=== PATIENT | male | born 1995 | race African-American/Black ===

== ENCOUNTER 2017-07-12 20:27 | Emergency (ER) | payer SELFPAY ==
[~2017-07-12] VITALS: Ht 177.8 cm; Wt 88.6 kg
[~2017-07-12 20:27] MED LIST: CEPH500C3 PO; Z.0.NO CURRENT MEDS
[2017-07-12 20:29] VITALS: BP 105/57; PULSE 64; RESP 15; TEMP 99; O2SAT 96
--- NOTE | 2017-07-12 21:36 | PD ---
HPI Chief Complaint: Bite or Sting Time Seen by Provider: 21:31 Travel History International Travel<30 days: No Contact w/Intl Traveler<30days: No Traveled to known affect area: No History of Present Illness HPI ABOUT 4HRS AGO WAS BITTEN BY A STRAY DOG, UNKNOWN VACCINATION STATUS OF DOG, ALSO CAN'T RECALL LAST TETANUS UPDATE ON HIMSELF WELL. DENIES ANY OTHER COMPLAINT PFSH Past Medical History Diminished Hearing: No Immunizations Current: Yes Social History Alcohol Use: No Tobacco Use: No Substance Use: No Allergies-Medications (Allergen,Severity, Reaction): Coded Allergies: shellfish derived (Unverified Allergy, Severe, Hives, 06/14/17) Reported Meds & Prescriptions Reported Meds & Active Scripts Active Lortab (Hydrocodone-Acetaminophen) 5-325 Mg Tab 1 Tab PO Q4H PRN Augmentin (Amoxicillin-Clavulanate) 875-125 Mg Tab 1 Tab PO BID Review of Systems Except as stated in HPI: all other systems reviewed are Neg Skin: Positive Other (RIGHT LAC TO CALF AREA) Physical Exam Narrative GENERAL: SKIN: Warm and dry. HEAD: Atraumatic. Normocephalic. EYES: Pupils equal and round. No scleral icterus. No injection or drainage. ENT: No nasal bleeding or discharge. Mucous membranes pink and moist. NECK: Trachea midline. No JVD. CARDIOVASCULAR: Regular rate and rhythm. RESPIRATORY: No accessory muscle use. Clear to auscultation. Breath sounds equal bilaterally. GASTROINTESTINAL: Abdomen soft, non-tender, nondistended. MUSCULOSKELETAL: Extremities without clubbing, cyanosis, or edema. No obvious deformities. 5 CM LAC TO MEDIAL LATERAL CALF NEUROLOGICAL: Awake and alert. No obvious cranial nerve deficits. Motor grossly within normal limits. Five out of 5 muscle strength in the arms and legs. Normal speech. PSYCHIATRIC: Appropriate mood and affect; insight and judgment normal. Data Data Last Documented VS Vital Signs Date Time Temp Pulse Resp B/P (MAP) Pulse Ox O2 Delivery O2 Flow Rate FiO2 07/13/17 00:07 07/12/17 20:29 99.0 64 15 96 Room Air Orders Orders Rabies Vaccine Human Cell Inj (Imovax In (07/12/17 21:45) Rabies Immune Globulin Inj (Hyperrab S/D (07/12/17 21:45) Xaro-Ywn-Cmrxoq (Booster) Inj (Boostrix (07/12/17 22:00) Acetamin-Hydrocod 325-10 Mg ([place] 10-32 (07/12/17 22:45) Forearm (2vws) (07/12/17 ) MDM Medical Decision Making Medical Screen Exam Complete: Yes Emergency Medical Condition: Yes Medical Record Reviewed: Yes Differential Diagnosis DOG BITE FROM UNKNOWN DOG Narrative Course DUE TO UNKNOWN DOG, WILL GIVE RABIES IG 20IU/KG MOST OF IT TO WOUND SITE, IF ANY LEFT OVER WILL BE GIVEN IPSILATERAL DELTOID..... OPPOSITE DELTOID RABIES IM TOXOID.... WELL TETANUS TOXOID...PLEASE SEE LOOSE REAPPROX DONE BY ADENIKE POWELL PROCEDURE NOTE Diagnosis Primary Impression: LACERATION S/P DOG BITE Patient Instructions: Animal Bite (ED), General Instructions, Laceration (ED) Additional Instructions: RETURN TO CLINIC OR URGENT CARE TO REMOVE SUTURES IN 7 DAYS Scripts Hydrocodone-Acetaminophen (Lortab) 5-325 Mg Tab 1 TAB PO Q4H Y for PAIN, #20 TAB 0 Refills Prov: Robson Aly MD 07/12/17 Amoxicillin-Clavulanate (Augmentin) 875-125 Mg Tab 1 TAB PO BID for Infection, #14 TAB 0 Refills Prov: Robson Aly MD 07/12/17 Disposition: 01 DISCHARGE HOME Condition: Stable Robson Aly MD Jul 12, 2017 21:36
[2017-07-12] MEDS ORDERED: RABIES IMMUNE GLOBULIN INJ 1,500 UNITS/10 ML VIAL IM ONE (21:45)
[2017-07-12] MEDS ORDERED: RABIES VACCINE HUMAN DIPL CELL 2.5 UNITS/ML SYRINGE IM ONE (21:45)
[2017-07-12] MEDS ORDERED: HYDR-3533 PO (21:51)
[2017-07-12] MEDS ORDERED: AUGM875T3 PO (21:51)
[2017-07-12] MEDS ORDERED: DIPHTH/TETANUS/ACEL PERTUSSIS (BOOSTER) 0.5 ML VIAL/PFS IM ONE (22:00)
[2017-07-12] MEDS ORDERED: ACETAMINOPHEN/HYDROcodone 325 MG/10 MG TAB PO ONE (22:45)
--- NOTE | 2017-07-12 23:20 | PD ---
Physical Exam Date Seen by Provider: Jul 12, 2017 Time Seen by Provider: 22:30 Data Data Last Documented VS Vital Signs Date Time Temp Pulse Resp B/P (MAP) Pulse Ox O2 Delivery O2 Flow Rate FiO2 07/12/17 20:29 99.0 64 15 105/57 (73) 96 Room Air Orders Orders Rabies Vaccine Human Cell Inj (Imovax In (07/12/17 21:45) Rabies Immune Globulin Inj (Hyperrab S/D (07/12/17 21:45) Bmnr-Ino-Ehxnrz (Booster) Inj (Boostrix (07/12/17 22:00) Acetamin-Hydrocod 325-10 Mg ([place] 10-32 (07/12/17 22:45) MDM Medical Record Reviewed: Yes Supervised Visit with BIA: Yes Narrative Course I was asked by provider to repair laceration to right anterior lower leg. Laceration was sustained when a dog bit the patient. Patient was alert and oriented and cooperative. No acute distress noted. Laceration was repaired. Please see procedural narrative for details. Dr. Aly retains care of this patient. Please see his note for further information and disposition. Procedures Procedure Narrative LACERATION LOCATION: Right anterior lower leg LENGTH: 4 cm NUMBER OF STITCHES/KRISTAL: 3 sutures REPAIR: The area of the laceration was prepped with Betadine and sterilely draped. The laceration was infiltrated with 1% lidocaine. The wound was copiously irrigated and explored without evidence of foreign body, tendon injury or neurovascular injury. The wound was closed using 3. 0 Prolene. Sutures were loosely approximated due to mechanism of injury to reduce risk of infection. This was a single layer repair. A sterile dressing was applied. The patient was advised to keep the dressing clean and dry. Patient tolerated the procedure well. Diagnosis Primary Impression: LACERATION S/P DOG BITE Scripts Hydrocodone-Acetaminophen (Lortab) 5-325 Mg Tab 1 TAB PO Q4H Y for PAIN, #20 TAB 0 Refills Prov: Robson Aly MD 07/12/17 Amoxicillin-Clavulanate (Augmentin) 875-125 Mg Tab 1 TAB PO BID for Infection, #14 TAB 0 Refills Prov: Robson Aly MD 07/12/17 Disposition: 01 DISCHARGE HOME Condition: Stable Aurelia Cano Jul 12, 2017 23:20
--- NOTE | 2017-07-12 23:58 | RADRPT ---
EXAM DATE/TIME: 07/12/2017 23:15 [facility] COMPARISON: No previous studies available for comparison. INDICATIONS : Mid shaft and distal lacerations to left forearm post dog bite. MEDICAL HISTORY : None. SURGICAL HISTORY : None. ENCOUNTER: Initial ACUITY: 1 day PAIN SCORE: 8/10 LOCATION: Left upper extremity FINDINGS: Two view examination of the left forearm demonstrates no evidence of fracture or dislocation. Bony m ineralization is normal. CONCLUSION: Unremarkable examination of the left forearm. Deandre Padilla MD on July 12, 2017 at 23:56 Board Certified Radiologist. This report was verified electronically.
== END 2017-07-13 00:38 | disposition home or self-care (01) ==
LOC: NEPD 20:27
DX: S81.851A Open bite, right lower leg, initial encounter (principal); W54.0XXA Bitten by dog, initial encounter; Z23 Encounter for immunization
CPT/HCPCS: 12013; 73090; 90375; 90471; 90472; 90675; 90715; 96372